=== PATIENT | male | born 1965 | race Caucasian/White ===

== ENCOUNTER → 2022-05-14 | Outpatient (CLI) | payer BC ==
--- NOTE | 2022-05-15 09:29 | CA ---
Transthoracic Echo Report Name: Kapil Yang Age: 57 Gender: M : 1965 Exam Date: 05/14/2022 15:38 Exam Location: [facility] Ht (in): 72 Wt (lb): 275 Ordering Physician: Jose Marin MD Attending/Referring Phys: Jagruti Amaro [facility] Business Development Associate Janki Nance RDCS Procedure CPT: Indications: R01.1 cardiac murmur unsp Cardiac Hx: Technical Quality: Fair Contrast 1: Total Dose (mL): Contrast 2: Total Dose (mL): MEASUREMENTS (Male / Female) Normal Values 2D ECHO LV Diastolic Diameter PLAX 4.3 cm 4.2 - 5.9 / 3.9 - 5.3 cm LV Systolic Diameter PLAX 2.3 cm IVS Diastolic Thickness 1.3 cm 0.6 - 1.0 / 0.6 - 0.9 cm LVPW Diastolic Thickness 1.1 cm 0.6 - 1.0 / 0.6 - 0.9 cm LV Relative Wall Thickness 0.6 RV Internal Dim ED PLAX 3.8 cm LA Volume 62.0 cm??? 18 - 58 / 22 - 52 cm??? M-MODE Aortic Root Diameter MM 3.3 cm LA Systolic Diameter MM 4.7 cm LA Ao Ratio MM 1.4 AV Cusp Separation MM 2.4 cm DOPPLER AV Peak Velocity 159.3 cm/s AV Peak Gradient 10.1 mmHg AV Mean Velocity 93.4 cm/s AV Mean Gradient 4.1 mmHg AV Velocity Time Integral 28.4 cm LVOT Peak Velocity 116.6 cm/s LVOT Peak Gradient 5.4 mmHg LVOT Velocity Time Integral 22.7 cm MV Area PHT 2.9 cm??? Mitral E Point Velocity 64.7 cm/s Mitral A Point Velocity 65.1 cm/s Mitral E to A Ratio 1.0 MV Deceleration Time 259.7 ms MV E' Velocity 7.2 cm/s Mitral E to MV E' Ratio 9.0 TR Peak Velocity 256.7 cm/s TR Peak Gradient 26.4 mmHg FINDINGS Left Ventricle Mildly increased left ventricular wall thickness. Normal left ventricular systolic function with no obvious regional wall motion abnormalities. Left ventricular ejection fraction is estimated at 55-60 %. Left ventricular cavity size normal. Right Ventricle Normal right ventricular size and function. Right ventricular systolic pressure within normal limits. Right Atrium Normal right atrial size. Left Atrium Mildly increased left atrial volume. Mildly increased left atrial area. Mitral Valve Structurally normal mitral valve. Mild mitral regurgitation. Aortic Valve Trileaflet aortic valve. No aortic valve stenosis or regurgitation. Tricuspid Valve Structurally normal tricuspid valve. Mild tricuspid regurgitation. Pulmonic Valve Trace pulmonic regurgitation. Pericardium No pericardial effusion. Aorta Normal size aortic root and proximal ascending aorta. CONCLUSIONS Left ventricular ejection fraction 55-60% Mild increased left ventricular wall thickness Mildly dilated left atrium Mild mitral regurgitation Mild tricuspid regurgitation No pericardial effusion Previewed by: Dr. Da Forte DO (Electronically Signed) Final Date: 15 May 2022 09:28
== END | disposition home or self-care (01) ==
LOC: RADECHMAIN 15:32
PROVIDERS: ATTEND Family Medicine
DX: I08.1 Rheumatic disorders of both mitral and tricuspid valves (principal); R01.1 Cardiac murmur, unspecified
CPT/HCPCS: 93306

== ENCOUNTER → 2022-11-19 | Outpatient (CLI) | payer BC ==
--- NOTE | 2022-12-17 13:54 | P.CEMON ---
Sinus mechanism with intermittent PVCs Occasional sinus tachycardia No nonsustained VT
--- NOTE | 2022-12-19 08:05 | EM ---
Sinus mechanism with intermittent PVCs Occasional sinus tachycardia No nonsustained VT Additional CC's: Jose MONTOYA
== END | disposition home or self-care (01) ==
LOC: RADECHMAIN 07:31
PROVIDERS: ATTEND Family Medicine
DX: R00.0 Tachycardia, unspecified (principal)
CPT/HCPCS: 93270

== ENCOUNTER 2023-04-15 12:34 | Emergency (ER) | payer BC ==
[2023-04-15 13:09] VITALS: RESP 18; TEMP 97.6
--- NOTE | 2023-04-15 14:02 | ED ---
General Adult HPI - General Chief complaint: Skin/Abscess/Foreign Body Stated complaint: Rash Hands,Swollen Face Time Seen by Provider: 04/15/23 12:45 Source: patient, RN notes reviewed Mode of arrival: ambulatory Limitations: no limitations - History of Present Illness Initial comments: 57-year-old male presents emergency department with chief complaint of rash. Patient states started on his hands states that he went to [place] and states that rash had resolved states it came back now is greatly worsened rapidly and has swelling of his face. Patient states he was given steroid and steroid cream. Patient states it did not help much she was seen by PCP and sent here today. - Related Data Previous Rx's Medication Instructions Recorded predniSONE 10 mg PO DIRECTED #45 tab 04/15/23 Allergies Allergy/AdvReac Type Severity Reaction Status Date / Time No Known Allergies Allergy Verified 04/15/23 14:07 Review of Systems ROS Statement: Those systems with pertinent positive or pertinent negative responses have been documented in the HPI. ROS Other: All systems not noted in ROS Statement are negative. Past Medical History Past Medical History: Hypertension History of Any Multi-Drug Resistant Organisms: None Reported Additional Past Surgical History / Comment(s): hernia repair Smoking Status: Never smoker Past Alcohol Use History: None Reported Past Drug Use History: None Reported General Exam Limitations: no limitations General appearance: alert, in no apparent distress Head exam: Present: atraumatic, normocephalic, normal inspection Eye exam: Present: periorbital swelling. Absent: normal appearance ENT exam: Present: normal exam, mucous membranes moist Neck exam: Present: normal inspection. Absent: tenderness, meningismus, lymphadenopathy Respiratory exam: Present: normal lung sounds bilaterally. Absent: respiratory distress, wheezes, rales, rhonchi, stridor Cardiovascular Exam: Present: regular rate, normal rhythm, normal heart sounds. Absent: systolic murmur, diastolic murmur, rubs, gallop, clicks Course Vital Signs 04/15/23 12:58 Temperature 97.6 F Pulse Rate 87 Respiratory 18 Rate Blood Pressure 139/78 O2 Sat by Pulse 96 Oximetry Medical Decision Making - Medical Decision Making Was pt. sent in by a medical professional or institution (, PA, PLATFORM WORKER, urgent c are, hospital, or halfway...) When possible be specific @ -[PCP Did you speak to anyone other than the patient for history (EMS, parent, family, police, friend...)? What history was obtained from this source @ -No Did you review nursing and triage notes (agree or disagree)? Why? @ -I reviewed and agree with nursing and triage notes Were old charts reviewed (outside hosp., previous admission, EMS record, old EKG, old radiological studies, urgent care reports/EKG's, halfway records)? Report findings @ -No old charts were reviewed Differential Diagnosis (chest pain, altered mental status, abdominal pain women, abdominal pain men, vaginal bleeding, weakness, fever, dyspnea, syncope, headache, dizziness, GI bleed, back pain, seizure, CVA, palpatations, mental health, musculoskeletal)? @ -Eczema, dermatitis, allergic reaction, psoriasis EKG interpreted by me (3pts min.). @ -[None X-rays interpreted by me (1pt min.). @ -None done CT interpreted by me (1pt min.). @ -None done U/S interpreted by me (1pt. min.). @ -None done What testing was considered but not performed or refused? (CT, X-rays, U/S, labs)? Why? @ -None What meds were considered but not given or refused? Why? @ -None Did you discuss the management of the patient with other professionals (professionals i.e. , PA, PLATFORM WORKER, lab, RT, psych nurse, social worker clinical, grocery store bagger, teacher, patient safety officer, case management assistant)? Give summary @ -No Was smoking cessation discussed for >3mins.? @ -No Was critical care preformed (if so, how long)? @ -No Were there social determinants of health that impacted care today? How? (Homelessness, low income, unemployed, alcoholism, drug addiction, transportation, low edu. Level, literacy, decrease access to med. care, fci, rehab)? @ -No Was there de-escalation of care discussed even if they declined (Discuss DNR or withdrawal of care, Hospice)? DNR status @ -No What co-morbidities impacted this encounter? (DM, HTN, Smoking, COPD, CAD, Cancer, CVA, ARF, Chemo, Hep., AIDS, mental health diagnosis, sleep apnea, morbid obesity)? @ -None Was patient admitted / discharged? Hospital course, mention meds given and route, prescriptions, significant lab abnormalities, going to OR and other pertinent info. @ -Discharged patient sent in due to rash. His rash is not rapidly progressing. This does appear to be some sort of dermatitis will require dermatology follow-up patient was started on steroids and return brands were discussed. Undiagnosed new problem with uncertain prognosis? @ -No Drug Therapy requiring intensive monitoring for toxicity (Heparin, Nitro, Insulin, Cardizem)? @ -No Were any procedures done? @ -No Diagnosis/symptom? @ -Dermatitis Acute, or Chronic, or Acute on Chronic? @ -Acute Uncomplicated (without systemic symptoms) or Complicated (systemic symptoms)? @ -Uncomplicated Side effects of treatment? @ -No Exacerbation, Progression, or Severe Exacerbation? @ -No Poses a threat to life or bodily function? How? (Chest pain, [place], MA, pneumonia, PE, COPD, DKA, ARF, appy, cholecystitis, CVA, Diverticulitis, Homicidal, Suicidal, threat to staff... and all critical care pts) @ -No Disposition Clinical Impression: Dermatitis Disposition: HOME SELF-CARE Condition: Stable Instructions (If sedation given, give patient instructions): Psoriasis (ED), Dermatitis (ED) Additional Instructions: Please return to the Emergency Department if symptoms worsen or any other concerns. Prescriptions: predniSONE 10 mg PO DIRECTED #45 tab Is patient prescribed a controlled substance at d/c from ED?: No Referrals: Jose Marin MD [Primary Care Provider] - 1-2 days Ira Weiss MD [STAFF PHYSICIAN] - 1-2 days Time of Disposition: 14:46
[2023-04-15] MEDS: FAMOTIDINE 20 MG/2 ML VIAL IV STA (14:12)
[2023-04-15] MEDS: methylPREDNISolone SOD SUCCI 125 MG/2 ML VIAL IV STA (14:12)
[2023-04-15] MEDS: diphenhydrAMINE 50 MG/ML 1 ML VIAL IVP STA (14:12)
[2023-04-15 15:42] VITALS: BP 100/60; PULSE 74
== END 2023-04-15 15:12 | disposition home or self-care (01) ==
LOC: EC 12:34
DX: S60.529A Blister (nonthermal) of unspecified hand, initial encounter (principal); R22.0 Localized swelling, mass and lump, head; L30.9 Dermatitis, unspecified; I10 Essential (primary) hypertension
CPT/HCPCS: 99282; 96374; 96375 ×2; J1200; J2930; J3490

== ENCOUNTER → 2023-07-12 | Outpatient (CLI) | payer BC ==
--- NOTE | 2023-07-13 14:26 | CT ---
EXAMINATION TYPE: CT urogram wo/w con CT DLP: 4723.9 mGycm, Automated exposure control for dose reduction was used. DATE OF EXAM: 07/12/2023 11:25 AM COMPARISON: Prostate ultrasound 11/29/2021 CLINICAL INDICATION:Male, 58 years old with history of R31.1 BENIGN ESSENTIAL MICROSCOPIC HEMATURIA; PHH, hematuria TECHNIQUE: Urogram with imaging of the abdomen and pelvis. Coronal and sagittal reformats were performed. 2D and 3D reconstructions are performed to assist visualization of the urinary tract on a separate workstat ion. Contrast used:100 mL of Isovue 300 with IV Contrast, Oral contrast used: None. FINDINGS: LOWER CHEST: No significant findings. GENITOURINARY: RIGHT KIDNEY AND URETER: No calculi. No hydronephrosis or hydroureter. No solid renal mass, simple ap pearing cysts. No urothelial lesions: no filling defect, dilation, stricture or wall thickening. LEFT KIDNEY AND URETER: No calculi. No hydronephrosis or hydroureter. No solid renal masses, simple a ppearing renal cysts. No urothelial lesions: no filling defect, dilation, stricture or wall thickenin g. URINARY BLADDER: Limited evaluation secondary to no significant filling of the bladder with excreted IV contrast. No calculi or obvious mass. Posterior lateral bladder diverticula. REPRODUCTIVE: Prostate is enlarged in size measuring 6.7 inches in transverse dimension. ABDOMEN LIVER: Diffusely hypoattenuating, consistent with hepatic steatosis.. GALLBLADDER AND BILE DUCTS: Unremarkable PANCREAS: Unremarkable. SPLEEN: Unremarkable. ADRENAL GLANDS: Unremarkable. STOMACH AND BOWEL: . No evidence of bowel obstruction. PERITONEUM: No evidence of pneumoperitoneum, free fluid, or adenopathy. VASCULATURE: No evidence of aortic aneurysm. MUSCULOSKELETAL: No acute osseous abnormalities LYMPH NODES: No gross evidence for lymphadenopathy. SOFT TISSUE/ABDOMINAL WALL: Fat-containing inguinal hernia. IMPRESSION: 1. No evidence of urolithiasis or renal/urothelial neoplasm. 2. Prostatomegaly. 3. Left lateral bladder diverticula. 4. Poor visualization of the urinary bladder due to lack of excreted contrast in the bladder lumen..
== END | disposition home or self-care (01) ==
LOC: RADCTMAIN 08:37
PROVIDERS: ATTEND Urology
DX: N40.0 Benign prostatic hyperplasia without lower urinary tract symptoms (principal); N32.3 Diverticulum of bladder; R31.1 Benign essential microscopic hematuria
CPT/HCPCS: 74178; 74400

== ENCOUNTER → 2023-08-06 | Outpatient (CLI) | payer BC ==
--- NOTE | 2023-08-07 16:15 | MR ---
EXAMINATION TYPE: MR Prostate wo/w con DATE OF EXAM: 08/06/2023 6:58 AM COMPARISON: None. CLINICAL INDICATION:Male, 58 years old with history of R97.20 elevated PSA; TECHNIQUE: Multi-planar, multi-sequence imaging of the pelvis is performed prior to and following the uncomplicated administration of bolus intravenous gadolinium. CONTRAST: Interpretive Criteria: PI-RADS v2.1 SERUM PSA: 11-06-22 = 2.0 9-01-09 = 4.3 SURGICAL PATHOLOGY: No data available. FINDINGS: Prostatic dimensions: 6.8 x 9.0 x 5.6 cm. Ellipsoid Volume:179.45 (PSA density=0.01 ng/mL/mL) CENTRAL GLAND (Central and Transition Zones/CZ+TZ): Multiple bilateral, heterogenous appearing hypertrophic stromal nodules, without suspicious lesion. M edian lobe hypertrophy with protrusion into the base of the bladder. (PI-RADS 2) PERIPHERAL ZONE (PZ): Bilateral linear, indistinct wedgelike areas of low ADC, and low T2 signal, No evidence of masslike a bnormality, or localized perfusional hypervascularity, to further suggest a focus of clinically signi ficant prostate cancer. (PI-RADS 2) SEMINAL VESICLES (SV): Symmetric and unremarkable. PERIPROSTATIC TISSUES: Unremarkable. LYMPH NODES: No enlarged pelvic lymph node. REMAINING PELVIS: Bladder wall is within normal limits given distention. Left posterior bladder diverticulum. No abnormal free or organized intrapelvic fluid collection. No pathologic bowel dilation or mural thickening. No hernia visualized OSSEOUS STRUCTURES: No suspicious osseous abnormality. IMPRESSION: 1. No specific features for high-risk prostate cancer. Maximum PI-RADS score: 2. 2. Substantial lateral BPH, estimated gland volume 179.45 mL. 3. No suspicious osseous lesion. No lymphadenopathy. No evidence of prostate adenocarcinoma involving the periprostatic tissues.
== END | disposition home or self-care (01) ==
LOC: RADMRIMAIN 06:01
PROVIDERS: ATTEND Urology
DX: N40.0 Benign prostatic hyperplasia without lower urinary tract symptoms (principal); R97.20 Elevated prostate specific antigen [PSA]
CPT/HCPCS: 72197; A9585